=== PATIENT | male | born 1960 | race Caucasian/White ===

== ENCOUNTER → 2021-03-25 09:03 | Outpatient (CLI) | payer OTHER, SELFPAY ==
[2021-03-25 10:32] LABS: Add Manual Diff / Slide Review NO; Basophils Absolute Auto 0 /uL (0-100); Basophils Percent Auto 0.8 % (0-2); Eosinophils Absolute Auto 600 /uL (0-450); Eosinophils Percent Auto 9.9 % (2-4); Hemoglobin 13.9 g/dL (13.5-17.5); Lymphocytes Absolute Auto 1200 /uL (1100-4500); Lymphocytes Percent Auto 21.4 % (25-40); Mean Corpuscular Hemoglobin 32.5 PG (26-34); Mean Corpuscular Volume 95.7 fL (80-100); Monocytes Absolute Auto 400 /uL (0-900); Monocytes Percent Auto 7.8 % (3-14); Neutrophils Absolute Auto 3400 /uL (1500-7000); Neutrophils Percent Auto 60.1 % (50-75); Platelet Count 258 X10^3/uL (150-400); Red Blood Cell Count 4.28 X10^6/uL (4.5-5.9); Red Cell Distribution Width 12.6 % (11.6-14.8); White Blood Cell Count 5.7 X10^3/uL (4.5-11.0)
[2021-03-25 10:44] LABS: Hemoglobin A1C% w Est Avg Glu 4.5 % (4.0-6.0)
[2021-03-25 10:45] LABS: BUN Creatinine Ratio 12.7 (6-22); Blood Urea Nitrogen 13 mg/dL (9-20); Calcium 9.4 mg/dL (8.4-10.2); Carbon Dioxide 32 mmol/L (22-32); Chloride 96 mmol/L (98-107); Estimated Glomerular Filt Rate > 60.0 mL/min (>60); Glucose 88 mg/dL (80-110); HEMOLYSIS < 15 (0-50); Potassium 3.9 mmol/L (3.4-5.1); Sodium 133 mmol/L (137-145)
== END ==
PROVIDERS: Family Provider Family Medicine; PCP Family Medicine; Referring Provider Orthopaedic Surgery; Visit Provider Orthopaedic Surgery
DX: Z01.818 Encounter for other preprocedural examination (principal); Z01.812 Encounter for preprocedural laboratory examination; M25.562 Pain in left knee; R73.9 Hyperglycemia, unspecified
CPT/HCPCS: 36415; 80048; 83036; 85025; 93005; 93010

== ENCOUNTER → 2021-04-09 11:23 | Outpatient (CLI) | payer OTHER, SELFPAY ==
[2021-04-09 14:08] LABS: COVID19 -Nasal RAPID Negative (Negative)
== END ==
PROVIDERS: Family Provider Family Medicine; PCP Family Medicine; Visit Provider Nurse Practitioner
DX: Z20.822 Contact with and (suspected) exposure to COVID-19 (principal)
CPT/HCPCS: 87635

== ENCOUNTER 2021-04-12 06:00 | Day surgery (SDC) | payer OTHER, SELFPAY ==
[2021-04-06 11:40] VITALS: BMI 26.3
[2021-04-12] VITALS (18 sets, daily range): BP systolic 111–135; BP diastolic 60–89; PULSE 49–83; RESP 10–18; TEMP 35.9–37; O2SAT 92–100; BMI 26.9; BMI 27.0
[2021-04-12] MEDS: LACTATED RINGERS 1,000 ML 42 ML IV (06:57)
[2021-04-12] MEDS: ACETAMINOPHEN 325 MG TABLET 975 MG PO (07:16)
--- NOTE | 2021-04-12 07:24 | PM.PREOP ---
Pre-operative Note COVID-19 COVID-19 status: Negative Result date/Date tested (Pos, Neg/Pending): 04/09/21 Interval Note History & Physical reviewed/Exam performed by Physician: Yes Changes to H&P: No
--- NOTE | 2021-04-12 07:25 | DI.RAD.S_ITS ---
PROCEDURE: XR KNEE LT 1TO2V INDICATIONS: Post op total knee TECHNIQUE: 2 view(s) of the knee acquired. COMPARISON: [facility], CR, XR KNEE ARTHRITIC SERIES BI, 03/11/2021, 10:31. FINDINGS: Bones: Patient is status post knee joint arthroplasty. Hardware components are in expected positions. Visualized bony structures are intact. Soft tissues: Overlying postoperative changes are noted. IMPRESSION: Expected postoperative appearance of the left knee arthroplasty. Dictated by: Ebenezer Villa M.D. on 04/12/2021 at 9:35 Approved by: Ebenezer Villa M.D. on 04/12/2021 at 9:36
--- NOTE | 2021-04-12 07:27 | PM.OP.1 ---
Operative Date/Time/Diagnoses Date of procedure: 04/12/21 Time of procedure: 09:52 Pre-op diagnosis: Left knee osteoarthritis Post-op diagnosis: same Procedure & Clinicians Procedure: Left total knee replacement Same procedure as scheduled: Yes Indications: The patient has had progressively worsening left knee pain with radiographic changes consistent with arthritis. Non-operative management has failed and the patient has requested total knee replacement. The risks, benefits and alternatives to surgery were discussed with the patient prior to proceeding. Risks discussed included, but were not limited to, failure to relieve pain, stiffness, infection, nerve damage, deep venous thrombosis, pulmonary embolism, stroke, coma, heart attack, permanent paralysis and , as well as the potential need for eventual revision of the prosthetic. Surgeon: Greg Huang Electroencephalogram Technologist: Wei Garcia Click Yes if Unassisted: No Anesthesia Type: General, Spinal and Local Operative Notes Findings: Severe medial and moderately severe patellofemoral osteoarthritis. Relative preservation of the lateral compartment. Closure Type: primary Specimen(s): none sent Prosthetic devices, grafts, tissues, transplants, or devices: Implants used in this procedure were manufactured by the [employer] and [employer] and included the BCS II Journey total knee replacement with a size 8 Oxinium femur, a size 7 non porous tibial base plate, a 9 mm cross-linked polyethylene insert and a 38 mm oval Linn II patella. Applied: implant(s) Estimated Blood Loss (mL): 100 Blood products transfused: none Tourniquet time (min): 51 Procedure in detail: The patient was seen in the pre-operative area, where the left knee was identified as the operative site and this was marked with my initials. The patient received pre-operative antibiotics, and was taken to the operating room and placed on the operative table in the supine position. After satisfactory anesthesia, a time lock expert out was performed. The left leg was encircled with a tourniquet about the proximal thigh, and the leg was prepared from the toes to the tourniquet with ChloroPrep in the usual fashion and draped through sterile drapes. The leg was elevated and exsanguinated with Eschmark bandage and the tourniquet inflated to 250 mmHg pressure. The knee was approached through an approximately 16 cm incision centered over the patella and carried into the knee through a medial parapatellar arthrotomy. The anterior osteophytes and soft tissues were removed. The rotational landmarks of [place]'s line and the transepicondylar axis were marked on the femur with electrocautery, and intramedullary guide holes for the femur and tibia were created. The distal femoral cut was made in 6 degrees of valgus using the intramedullary guide at the primary cut setting. The proximal tibial cut was then made using the intramedullary guide, taking 9 mm of bone off the less involved side. The extension gap was checked and the rotation of the femoral component confirmed with the gap balancing blocks. The anterior, posterior and chamfer cuts were then made. The posterior osteophytes and soft tissues were then removed. The posterior capsule was injected with part of a mixture of 60 ml 0.25% Marcaine mixed with 20 ml Exparel and 4 mg of morphine for post-operative pain control. The remainder of this mixture was injected into the capsule and subcutaneous tissues during cement curing. The tibia was prepared with the rotation set by an extra medullary guide. Trial tibial and femoral components were then placed and the intercondylar notch cut through the femoral trial. Range of motion was 0-145 degrees, with good stability throughout the range. The patella was then cut to accommodate the patellar prosthetic. There was no need for a lateral release. The trials were then removed, and the femoral hole plugged with a bone plug. The bone was prepared with pulsatile lavage, and dried with a sponge. Cement was applied and the final prosthetics placed. Excess cement was removed during and after cement curing. After confirming there was no extruded cement posteriorly, the final tibial insert was placed. The knee was copiously irrigated and the tourniquet deflated. Hemostasis was obtained. The capsule was closed with interrupted # 2 polyester sutures. The subcutaneous layer was closed with 3-0 Vicryl, and the skin with a running 3-0 V-Lock suture and Dermabond. An Aquacel Ag dressing was applied and the patient was taken to recovery having tolerated the procedure well. Complications: none Post-operative Condition: stable Disposition: PACU Plan for aftercare: The patient will be maintained on a standard total knee replacement protocol with weight bearing as tolerated. The patient will receive aspirin and sequential compression devices for DVT prophylaxis. The patient will be discharged home when safe for the home environment.
[2021-04-12] MEDS: TRANEXAMIC ACID 1,000 MG VIAL 2000 MG INJ ×2 (08:09→09:17)
[2021-04-12] MEDS: CEFAZOLIN 1 GM VIAL 2 GM IV (08:13)
--- NOTE | 2021-04-12 08:30 | SUR.OPER ---
Supine on padded OR bed. Pillow under head, arms secured on padded armboards <90 degree abduction. Safety belt across torso. Non-operative leg secured with tape over blanket over lower leg. Operative leg secured in DeMayo/Stewart/Nathe positioner. Foam padded brace at thigh of operative leg.
[2021-04-12] MEDS: BUPIVACAINE LIPOSOME 266 MG/20 ML VIAL INJ (08:37)
[2021-04-12] MEDS: MORPHINE 4 MG/ML INJ SUBCUT (08:39)
[2021-04-12] MEDS: BUPIVACAINE 0.25% (PF) VIAL 30 ML INJ (08:39)
[2021-04-12] MEDS: EPINEPHrine 1 MG/ML SUBCUT (08:40)
--- NOTE | 2021-04-12 10:03 | SUR.PHASEI ---
Received to PACU after general/spinal anesthesia. Airway patent, self maintained. Report received from Dr Saavedra and MARTI Flores. Medicated for pain by Dr Saavedra as noted.
[2021-04-12] MEDS: HYDROMORPHONE 2 MG INJ IV ×4 (10:09→10:30)
[2021-04-12] MEDS: LACTATED RINGERS 1,000 ML 120 ML IV (10:15)
[2021-04-12] MEDS: PREGABALIN 75 MG CAPSULE PO (10:15)
[2021-04-12] MEDS: hydrOXYzine pamoate 25 MG CAPSULE PO ×2 (10:15→12:47)
[2021-04-12] MEDS: OXYCODONE IR 5 MG TABLET PO ×2 (10:15→11:03)
[2021-04-12] MEDS: CELECOXIB 200 MG CAPSULE PO (10:16)
[2021-04-12] MEDS: fentaNYL 100 MCG/2 ML INJ IV ×3 (10:35→10:51)
--- NOTE | 2021-04-12 11:09 | SUR.PHASEI ---
Pt with tolerance to pain meds. Medicated as noted with improvement from pain score of 9 to 6. Pt states pain much better, but not where he would like it to be just yet. Pt dozing on and off with subsequent decrease in sats to 90-91%. Up to 4-95% when awake. Will transfer to floor. Report called to MARTI Chan. Transferred to room 216 with belongings by MARTI Salcedo and MARTI Tubbs.
[2021-04-12] MEDS: HYDROMORPHONE 0.5 MG INJ 0.2 MG IV ×2 (11:47→14:07)
[2021-04-12] MEDS: OXYCODONE IR 10 MG TABLET PO ×3 (11:48→20:46)
[2021-04-12] MEDS: LACTATED RINGERS 1,000 ML 100 ML IV ×2 (11:49→22:07)
[2021-04-12] MEDS: HYDROMORPHONE 2 MG TABLET PO (12:44)
[2021-04-12] MEDS: IBUPROFEN 400 MG TABLET PO ×3 (12:47→20:43)
--- NOTE | 2021-04-12 14:06 | PT.IIE ---
Current Diagnoses Unilateral primary osteoarthritis, left knee (04/12/21) Surgery Performed Operation Date: 04/12/21 07:45 Actual Procedures p Total Knee Arthroplasty(Left) - Greg Huang MD Medical History (Last Updated 04/06/21 @ 12:24 by Wandy Humphries RN) Anxiety Chronic neck and back pain COPD (chronic obstructive pulmonary disease) Hearing impaired HLD (hyperlipidemia) HTN (hypertension) Physical Therapy Inpatient Evaluation/Re-Eval M1 PT/OT-IP Prior Functional Status Start: 04/12/21 12:17 Freq: NEEDED Status: Active Protocol: Document 04/12/21 14:06 AW (Rec: 04/12/21 14:36 AW [id number]) Medical Review Prior Functional Status Medical History Reviewed Yes Communication WNL. Pt is an effective verbal communicator. Mobility and Gait Pt reports independent household mobility. He is able to walk short distances outside the home with or without a SPC. He reports feeling uncoordinated and out of sorts when initiating gait and admits to 2 falls in the past 3 months. Activities of Daily Living and IADL's Independent with ADL's. Pt is an active water truck driver. Prior Functional Level (Other details) Per H&P, pt has history of chronic back pain for which he regularly takes hydrocodone. Social History Household Members none Living Arrangements House Number of Floors (Floors) One Floor Number of Stairs To Enter/Railing? 3 LEN with left rail ascending Home Environment High Toilet,Tub/Shower Home Equipment Front Wheel Walker,Straight Cane Additional Social History Comment Pt states he plans to discharge to his friend's house where he can stay until 04/20. Details in this report refer to that home setting. Pt 's daughter will then be able to stay with him at his own house for another week to assist as needed. M2 PT-IP Current Condition Start: 04/12/21 12:17 Freq: NEEDED Status: Active Protocol: Document 04/12/21 14:06 AW (Rec: 04/12/21 14:36 AW [id number]) Physical Therapy Current Condition Current Condition Evaluation Date 04/12/21 Treatment Diagnosis L TKA; chronic pain; difficulty in walking Onset Date 04/12/21 Weight Bearing Status Weight Bearing Status Weight Bear as Tolerated M3 PT-IP Subjective Start: 04/12/21 12:17 Freq: NEEDED Status: Active Protocol: Document 04/12/21 14:06 AW (Rec: 04/12/21 14:36 AW [id number]) Subjective Physical Therapy Visit Type Type Initial Evaluation Visit Start Time 13:35 Visit Stop Time 14:06 Total Visit Minutes 31 Number of STEEL WELDER Visits 0 Physical Therapy Visit Comments Patient Comments Pt is willing to participate with PT. Patient Goals Return home with support from friends and family. Long-term, pt hopes to return to [facility]. Therapy Pain Assessment Pain When Pain Assessed During Mobility Pain Present Pain Present Pain Reported Location left knee Intensity 8 Scale Used 5/10 at rest; 8/10 with mobility Pain Behaviors Facial Grimacing,Guarding, Wincing Pain Management Techniques Apply Cold,Modification of Treatment,Timing of Activity with Medications M4 PT-IP Mobility and Gait Start: 04/12/21 12:17 Freq: NEEDED Status: Active Protocol: Document 04/12/21 14:06 AW (Rec: 04/12/21 14:36 AW [id number]) PT-Bed Mobility Assessment Supine to Sit Supine to Sit Minimal Assistance,1 Person Assistance Sit to Supine Sit to Supine Minimal Assistance,1 Person Assistance Scooting Scooting to Edge of Bed Standby Assistance PT-Transfer Assessment Sit to and From Stand Sit to and from Stand Minimal Assistance,Moderate Assistance,1 Person Assistance ,Use of Upper Extremities Equipment Transfer Assistive Device Gait Belt,Front Wheeled Walker Orthotic/Prosthetic Devices or Brace: No Transfers Transfer Destination Bed,Chair Transfer Technique Stand Step Pivot Transfer Ability Level of Assist Minimal Assistance,Moderate Assistance,1 Person Assistance Comments Mobility Comments Pt was lying in bed as PT arrived. Supine BP was 108/72 HR 63. Pt completed supine to sit toward left side of bed with min assist to support his operative leg. Pt was able to sit EOB with UE support. With bed raised 1-2 from lowest position (to simulate home environment), pt stood from the bed min A x 1 and used FWW to steady himself. He was able to shift weight laterally with significant use of BUE for offloading LLE. He agreed to attempt transfer to the chair, requiring min A x 1 and cues for quads activation on the left. PT provided max cues and min assist for sequencing stand>sit. Pt was shaking and his teeth were chattering. He complained of cold but denied lightheadedness. BP was 135/ 89 HR 72. Pt requested return to bed, requiring mod A x 1 to stand from the chair and for step transfer to bed using FWW . Min A was provided to elevate the LLE to the bed and pt was able to reposition himself with the exception of needing assist to adduct LLE. Pt was left with call light and tray table in reach, bed alarm on for safety. Gait Assessment Gait Gait Assistance Required: Minimum Assistance,Moderate Assistance,1 Person Assist Distance (Feet) 3 Able to Maintain Weight Bearing Status Yes During Gait Assistive Devices Assistive Device Gait Belt,Front Wheeled Walker Orthotic/Prosthetic Devices or Brace: No Gait Deviations General Gait Pattern Antalgic,Decreased Stride Length,Decreased Feet Clearance,Flexed Trunk,Step-to Gait Factors Limiting Gait Function Factors Limiting Gait Function Decreased Sensation,Decreased Strength,Limited Range of Motion,Pain,Poor Balance Comments Gait Comments Steps taken during transfers only. See mobility comments for details. Stair Climbing Assessment Comments Stair Climbing Comments Not assessed. PT-Balance Assessment Sitting Balance and Reactions Static Sitting Balance Ability Good Dynamic Sitting Balance Ability Good Standing Balance and Reactions Static Standing Balance Ability Fair Dynamic Standing Balance Ability Fair Device Used FWW M5 PT-IP Objective Assessments Start: 04/12/21 12:17 Freq: NEEDED Status: Active Protocol: Document 04/12/21 14:06 AW (Rec: 04/12/21 14:36 AW [id number]) Orientation Orientation/Cognition Level of Alertness Alert Orientation Name,Day of Week,Place, Situation Language Function Ability No Deficits Noted Safety Awareness Understands Safety Issues Memory Description No Deficits Noted Gross Range of Motion Lower Extremity ROM Assessment Left Impaired Strength Lower Extremity Strength Assessment Left Impaired Hip 4/5 Knee 3-/5 Ankle 4+/5 Sensation Assessment Sensation Gross Sensation Left LE Impaired Light Touch Impaired Comments Sensation Comments Pt reports numbness in posterior thigh on evaluation. M6 PT-IP Treatment Start: 04/12/21 12:17 Freq: NEEDED Status: Active Protocol: Document 04/12/21 14:06 AW (Rec: 04/12/21 14:36 AW [id number]) Physical Therapy Treatment Exercises Exercises Ankle Pumps,Quad Sets,Heel Slides Knee ROM Measurement 5-45 PROM Education Education Provided Weight Bearing Status,Post-Op Packet,Safety Other Treatments Other Treatment Performed Provided education on PT plan of care, weightbearing status, importance of early post-op mobility, and safe use of FWW. M7 PT-IP Assessment and Plan Start: 04/12/21 12:17 Freq: NEEDED Status: Active Protocol: Document 04/12/21 14:06 AW (Rec: 04/12/21 14:36 AW [id number]) PT Summary Assessment and Plan Potential Rehabilitation Potential Good Status of Condition at Evaluation Evolving Summary Impairments Pain,ROM,Strength,Balance, Sensation,Bed Mobility, Transfers,Gait Assessment Summary Xander is a 60 yo man seen for PT evaluation on POD0 following L TKA. He reports independent household mobility and modified independent outside the house for short distances with or without a SPC. On evaluation, pt required min to mod assist with bed mobility, sit to stand, and transfers with primary limitation being pain. Pt is likely to progress during his hospital stay and be safe to discharge home with assist and outpatient PT. Will continue to assess. Goals Bed Mobility Goal Standby Assistance Transfer Goal Standby Assistance,Front Wheeled Walker Gait Goal Standby Assistance,Front Wheel Walker Gait Distance 150 Other Goals - up/down three steps with L rail ascending SBA Days to Meet Goals 3 Frequency of Treatment Frequency Of Treatment Twice a Day Treatment Plan Physical Therapy Treatment Plan Bed Mobility Training,Transfer Training,Gait Training, Therapeutic Exercise,Balance Retraining,Post Op Education, Discharge Planning,Hot or Cold Pack Other Recommendations and Next Treatment transfers, gait with FWW Focus Precautions Other Precautions WBAT LLE Recommendations To Nursing Amount of Assist Needed 1 Person Assist Discharge Recommendations PT Discharge Recommendations Home with Assistance, Outpatient PT Transportation Needs at Discharge Private Vehicle
[2021-04-12] MEDS: methocarbamoL 500 MG TABLET 1000 MG PO ×2 (14:07→20:44)
[2021-04-12] MEDS: ACETAMINOPHEN 325 MG TABLET 650 MG PO ×2 (14:08→20:44)
[2021-04-12] MEDS: TRAZODONE 100 MG TABLET PO ×2 (14:08→20:45)
--- NOTE | 2021-04-12 15:36 | CM.DANOTE ---
Patient is a 60 yo male who was admitted on 04/12/21 for LTKA. Pt has REG Gild for insurance and his PCP is Dr. Alicia Arredondo. EMR was reviewed. Per Ortho MD, pt tolerated procedure this morning well. Per PT, pt was able to participate in ambulation some this afternoon and pending progress and stairs likely home with outpt vs HH. SW met bedside with pt and explained role and he confirms that he lives at home alone in [place] and works at [employer] at baseline and independent but his activity tolerance has decreased due to pain the past year. Pt states he is really looking forward to getting back into hiking and [place]. Pt denies any hx of HH or SNF and is established at outpt PT already. Pt confirms that his friend is planning to provide transport home at d/c and pt will stay with his friend for a couple days and friend has the house set up for him and has been through his own knee surgery himself so helped make sure pt's bed is the right height as well as a walker already. Pt also states his Dtr will arrive from out of town in a couple days and plans to stay at pt's house for a week for assist and pt does not anticipate any needs at d/c and plans to return to outpt PT. Pt denies any DPOA but states he is working on pwk. Plan: SW to follow closely for further PT tomorrow and pt has been on pain meds for years and may have pain mngmt issues to confirm safe plan of home with friend to assist and outpt PT vs HH. KALEB Cota Discharge Planning/Care Management CM Discharge Assessment Start: 04/12/21 15:34 Freq: Status: Active Protocol: Document 04/12/21 15:34 BF (Rec: 04/12/21 15:36 BF [id number]) Discharge Planning Assessment Assigned Human Resource Intern KALEB Ohara DPOA/Assigned Designee Name none Advance Directives? No: Working on Advance Directives on File No History Provided By Patient,Medical Record Has Patient been admitted in last 30 No days? Prior Living Arrangements House Household Members none Type of transporation used prior to Drives own vehicle admit Independent with ADL's Yes Is patient alert and oriented? Yes Caregiver for Another No Patient/Family Preference OP PT Therapy Barriers to Discharge No Discharge Plan Home Community Services Physical Therapy Transportation Arrangement Friend plans to transport pt to his house for assist at d/c Referrals Initiated None needed Additional Comment Pending further PT Whiteboard Updated in Patient Room with Yes name and ext. # of Human Resource Intern Review Status In Process Please Provide Date Initial DC 04/12/21 Assessment Was Performed Next Review Type Continued Stay Review Pre-Anesthesia Assessment Start: 04/06/21 11:40 Freq: Status: Active Protocol: Document 04/06/21 11:40 CAB (Rec: 04/06/21 12:41 CAB [id number]) Pre-Anesthesia Assessment Patient Information Reviewed Via Phone Assessment Assessment Completed With Patient H&P Completed Within 30 Days No: Not identified at time of assess Diagnostic Results BMP/CMP,CBC,EKG Comment Labs/EKG @ [facility] 03/25/21, COVID screen @ 04/09/21 Primary Care Provider Alicia Arredondo Seen Specialist in Last 12 Months Yes Specialist Seen Orthopedist Primary Language [place] Signal Officer Required No Height 187.96 cm Weight 92.986 kg Body Mass Index (BMI) 26.3 Hearing Ability Hard of Hearing Visual Impairment No Limitations Visual Assist None Dentition Type Teeth, Natural Present,Teeth, Missing Barriers to Learning Auditory,Visual Hx Anesthesia Reactions No Hx Family Anesthesia Reaction No Hx Malignant Hyperthermia No Hx Blood Transfusions No Anesthesia Review Requested No alcohol intake current alcohol intake frequency 0-2 drinks per day Smoking Status Former smoker how long ago did patient quit smoking Quit 1976 Substance Use Type does not use Pain Present Pain Reported Musculoskeletal Symptoms Abnormal Gait,Back Pain, Difficulty Walking,Joint Pain, Neck Pain,Radiating Pain into Limb,Tingling History of Falling (Recent or History of No ) Patient is completely paralyzed or No completely immobile Mental Status Oriented to own ability Is patient on oxygen? No Does patient have RIZVI/SOB Yes: r/t COPD Hx Sleep Apnea No Currently Taking a Beta Loy Yes: Metoprolol Can You Climb a Flight of Stairs Without No SOB Hx Chest Pain Yes: 2015-noncardiac, anxiety Hx SOB Yes: r/t COPD Hx Syncope or Dizziness No Anti-Coagulant Therapy No Has a Braiding Operator No Cardiac Testing No Hx Pacemaker/ICD No Pacemaker Rep Required? No Cardiac Clearance Received Not Applicable Diet Type At Home Regular dysphagia No Gastrointestinal Symptoms Diarrhea Bladder Pattern Frequency Urinary Catheter Present No Hx Urinary Self Catheterization No Diabetes No Hx Drug Resistant Organism No Presence of External or Internal Medical No Devices Have you had any close contact with No someone diagnosed with COVID-19? Marital Status Lives With none Prior Living Arrangements House Number of Floors (Floors) One Floor Support System Child/Children,Friend(s) Does the Patient Have Assistance After Yes: Pt will initially stay w/ Surgery friend then transfer home w/ daughter Patient Discharge Plan Description Return Home,Other Comment Pt advised overnight length of stay per surgeon Feels Safe in Current Environment Yes Been Physically Hurt or Threatened By a No Person in Current Environment Do you have thoughts of harming yourself None or others? Are you currently considering suicide? No Do you have a plan to hurt yourself or No Plan others? Do You Have Any Spiritual Beliefs That No May Affect Your HC Choices? Do You Have Any Cultural Practices That No May Affect Your HC Choices? Comment [place] Who Can We Speak to About Patient's Care Family, friends Identifying Code for Release of Patient Declines to issue Information Health Care Proxy/Next of Kin Xander Osborne (friend) Health Care Proxy Emergency Contact Name Xander Osborne (friend) Emergency Contact Advance Directives? No: Working on Power of Shiatsu Therapist No PAC Instructions Durable medical equipment, Medications to take/avoid, Nasal antibiotic,No ETOH/ petroleum product on skin DOS, NPO,Post-op transportation,Pre -surgical wash,Sturdy shoes/ comfortable clothes,Do not bring valuables and remove jewelry
--- NOTE | 2021-04-12 15:44 | PC.NURSE ---
Pt up to acute care from PACU at around 1110 am. Pt awake, alert and oriented x 4 and c/o pain 6/10. Pt takes narcotics routinely for chronic back pain. Medicated throughout shift with pain meds. Pain meds effective. Rates pain 4-5 lowest and he was ok with this level. Up with PT, using walker. Eating and drinking ok without nausea. IV fluids running into right wrist peripheral IV. Has not voided yet post surgery. Report given to Nuvia KIDD regarding this. Bedside shift report given with both RN's inspecting left knee dressing. Pt still experiencing numbness bilat back of legs from just above knee to buttocks.
[2021-04-12] MEDS: ALBUTEROL 2.5 MG/3 ML NEB (ADULT) INH ×2 (15:45→20:23)
[2021-04-12] MEDS: HYDROMORPHONE 0.5 MG INJ 0.4 MG IV (17:03)
[2021-04-12] MEDS: HYDROMORPHONE 4 MG TABLET PO (19:31)
[2021-04-12] MEDS: BUDESONIDE 0.5 MG/2 ML NEB INH (20:23)
[2021-04-12] MEDS: ALPRAZolam 0.5 MG TABLET 0.25 MG PO (20:43)
[2021-04-12] MEDS: ASPIRIN EC 81 MG TABLET PO (20:44)
[2021-04-12] MEDS: DOCUSATE 100 MG CAPSULE PO (20:45)
[2021-04-12] MEDS: METOPROLOL IR 50 MG TABLET 100 MG PO (20:45)
[2021-04-12] MEDS: diphenhydrAMINE 25 MG TABLET PO (20:46)
[2021-04-13] VITALS: BP 115/65; PULSE 60; RESP 18; TEMP 36.6; O2SAT 95
[2021-04-13] MEDS: IBUPROFEN 400 MG TABLET PO ×3 (01:16→08:37)
--- NOTE | 2021-04-13 01:36 | PC.NURSE ---
Patient is alert and oriented. Breath sounds CTA with RA sat of 95%. HRR. Denies nausea. BT hypoactive and denies flatus as yet following surgery. Has voided postop and denies dysuria, frequency or urgency. Able to move self in bed. Gait not assessed as not out of bed this shift. Aquacel dressing to left knee covered with sanchez wrap is CDI. States pain is currently only 3/10; medicated with scheduled Ibuprofen. Good pedal pulse and cap refill but unable to lift left leg off bed. Wearing bilateral calf SCD's. Reports having had recent fall and risk assessment is high so bed alarm is activated.
[2021-04-13] MEDS: HYDROMORPHONE 4 MG TABLET PO ×3 (01:54→09:25)
[2021-04-13 04:50] VITALS: BP 119/69; PULSE 58; RESP 18; TEMP 36.7; O2SAT 95
[2021-04-13 05:37] LABS: Hematocrit 33.6 % (41-53); Hemoglobin 11.4 g/dL (13.5-17.5)
[2021-04-13 08:00] VITALS: BP 131/88; PULSE 66; RESP 16; TEMP 36.8; O2SAT 97
[2021-04-13] MEDS: FLUoxetine 20 MG CAPSULE 80 MG PO (08:35)
[2021-04-13] MEDS: AMLODIPINE 5 MG TABLET 10 MG PO (08:36)
[2021-04-13] MEDS: ASPIRIN EC 81 MG TABLET PO (08:36)
[2021-04-13] MEDS: ALPRAZolam 0.5 MG TABLET 0.25 MG PO (08:36)
[2021-04-13] MEDS: TRAZODONE 100 MG TABLET PO (08:37)
[2021-04-13] MEDS: DOCUSATE 100 MG CAPSULE PO (08:37)
[2021-04-13] MEDS: ACETAMINOPHEN 325 MG TABLET 650 MG PO (08:37)
[2021-04-13] MEDS: hydroCHLOROthiazide 25 MG TABLET PO (08:37)
[2021-04-13] MEDS: METOPROLOL IR 50 MG TABLET 100 MG PO (08:37)
[2021-04-13] MEDS: ATORVASTATIN 20 MG TABLET PO (08:37)
[2021-04-13] MEDS: methocarbamoL 500 MG TABLET 1000 MG PO (08:37)
[2021-04-13 08:38] VITALS: BP 138/88
[2021-04-13] MEDS: FLUTICASONE 120 SPRAY/16 GM SPRAY.SUSP NASAL (08:38)
[2021-04-13] MEDS: lisinopriL 20 MG TABLET PO (08:38)
[2021-04-13] MEDS: OXYCODONE IR 10 MG TABLET PO (08:45)
[2021-04-13] MEDS: ALBUTEROL 2.5 MG/3 ML NEB (ADULT) INH (09:03)
[2021-04-13] MEDS: BUDESONIDE 0.5 MG/2 ML NEB INH (09:03)
[2021-04-13 09:04] VITALS: O2SAT 97
--- NOTE | 2021-04-13 09:25 | PM.DS.1 ---
History of Present Illness History of Present Illness Date Patient Seen: 04/13/21 Time Patient Seen: 09:25 Chief complaint: OPB Narrative: The history and physical is contained in the chart in a previously completed note. Please refer to that note for this information. Discharge Providers Provider Date of admission: April 12, 2021 Discharge Date: 04/13/21 Primary care physician: Alicia Arredondo MD Consults: 04/12/21 07:24 Consult to Anesthesiology Routine Comment: Consulting Provider: Anesthesiologist Reason for consultation: Regional block for post operative pain control 04/12/21 11:08 Consult to Discharge Planning Routine Comment: Consult to Physical Therapy Evaluate & Treat Comment: Physician Instructions: postop TKA protocol Consult to Respiratory Therapy Evaluate & Treat Comment: Physician Instructions: Evaluate and treat Discharge provider: Greg Huang MD Summary Hospital Course Discharge Diagnosis: 1. Left knee osteoarthritis 2. Post hemorrhagic anemia 3. History of long-term use of narcotics with dependency. Hospital Course: Patient was admitted to the hospital and taken directly to the operating room on April 12, 2021. He underwent a left total knee replacement without complications. Initially his intention had been to be discharged on the day of surgery however it was difficult to control his pain due to a significant tolerance to narcotic pain relievers. Eventually we came upon a regimen which gave him relief by postoperative day 1. On the morning of postoperative day 1 he is comfortable, medically stable and appears to be ready for discharge. Status at Discharge Cognitive/behavioral status at discharge: oriented Functional status at discharge: uses cane/walker Overall status at discharge: patient is progressing back to baseline Time Spent with Patient Time spent: Less than 30 minutes Exam Vital Signs (past 8 hours): - 04/13/21 04:50 04/13/21 08:00 04/13/21 08:38 Temperature 98.0 F 98.2 F Pulse Rate 58 L 66 Respiratory Rate 18 16 Blood Pressure 119/69 131/88 138/88 Pulse Oximetry 95 97 04/13/21 09:04 Temperature Pulse Rate Respiratory Rate Blood Pressure Pulse Oximetry 97 Oxygen Delivery Method Room Air Oxygen Flow Rate 0 Narrative Exam Narrative: Left knee wound is dressed with no drainage on the bandage. Calf is soft. Light touch and motion are intact in the left lower extremity. Objective Labs Result Diagrams: 04/13/21 05:20 Labs: Laboratory Results - last 24 hr 04/13/21 05:20 Hgb 11.4 L Hct 33.6 L [facility] Medical History (Updated 04/06/21 @ 12:24 by Wandy Humphries RN) Anxiety Chronic neck and back pain COPD (chronic obstructive pulmonary disease) Hearing impaired HLD (hyperlipidemia) HTN (hypertension) Surgical History (Updated 04/06/21 @ 12:22 by Wandy Humphries RN) Hx of arthroscopy of left knee (~1988) Social History household members: none Smoking Status: Former smoker alcohol intake: current Discharge Assessment & Plan Assessment and Plan Assessment: Stable postoperative day 1 status post left total knee replacement for osteoarthritis. Initially he had difficulty with pain control due to a substantial baseline tolerance for narcotics. He is currently comfortable on a mixture of oxycodone and Dilaudid. Plan of Treatment: Discharge today. Follow up at my office in 10-14 days. He has been given prescriptions for oxycodone 10 mg and Dilaudid 4 mg for pain control at home. In addition he has been instructed in the use of Tylenol and ibuprofen for baseline pain relief and the use of hydroxyzine for spasms. He has also been instructed in the use of low-dose aspirin for DVT prophylaxis. Discharge Plan Discharge Plan Patient Disposition: Home Discharge orders & Medications Discharge Orders: Discharge (Order); Ordered 04/13/21 Ordered By: Greg Huang Prescriptions: New acetaminophen 325 mg Tablet 650 mg PO TID 30 Days Qty: 180 RF: 0 aspirin 81 mg Tablet,Delayed Release (Dr/Ec) 81 mg PO BID 42 Days Qty: 84 RF: 0 ibuprofen 400 mg Tablet 400 mg PO Q4HR 30 Days RF: 0 hydromorphone 4 mg Tablet 4 mg PO Q4H PRN (Reason: Pain, Severe (7-10)) Qty: 20 RF: 0 hydroxyzine pamoate 25 mg Capsule 25 mg PO Q6HR PRN (Reason: Nausea) Qty: 40 RF: 0 oxycodone 10 mg Tablet 10 mg PO Q4H PRN (Reason: Pain, Severe (7-10)) Qty: 60 RF: 0 Continued methocarbamol 500 MG tablet 1,000 mg PO TID Qty: 0 RF: 0 trazodone 100 mg Tablet 100 mg PO TID Qty: 0 RF: 0 amlodipine 10 mg Tablet 10 mg PO DAILY Qty: 0 RF: 0 fluoxetine 40 mg Capsule 80 mg PO DAILY Qty: 0 RF: 0 metoprolol tartrate 100 mg Tablet 100 mg PO BID Qty: 0 RF: 0 lisinopril 20 mg Tablet 20 mg PO DAILY Qty: 0 RF: 0 fluticasone propionate 50 mcg/actuation Lindsay,Suspension 2 spray INTRANASAL DAILY Qty: 0 RF: 0 fluticasone propion-salmeterol [Advair Diskus] 250-50 mcg/dose Blister With Device 1 inh INHALATION QD-BID Qty: 0 RF: 0 atorvastatin 20 mg Tablet 20 mg PO DAILY RF: 0 alprazolam 0.5 mg Tablet 0.25 mg PO BID RF: 0 hydrochlorothiazide 25 mg Tablet 25 mg PO DAILY RF: 0 albuterol sulfate 90 mcg/actuation Hfa Aerosol Inhaler 2 puff INHALATION 6XD PRN (Reason: Shortness Of Breath) RF: 0 diphenhydramine HCl 25 mg Tablet 25 mg PO BEDTIME PRN (Reason: Sleep) RF: 0 Discontinued hydrocodone-acetaminophen 10-325 mg Tablet 2 tab PO Q4H PRN (Reason: Pain) Qty: 0 RF: 0 Follow up/Referrals: Greg Huang MD [Physician] - 2 Weeks Alicia Arredondo MD [Primary Care Provider] - Diet/Activity/Treatments Diet: Diet as Tolerated and Regular Activity: You may bear weight as tolerated on your left leg. Cold/Heat Therapy: You may apply ice for 15 minutes every hour as needed to the left knee for pain control. Skin/Wound/Dressing Care Report to your healthcare provider any signs of infection, such as:: chills, fever, night sweats, increased pain, unusual drainage and unusual redness Dressing: You may remove the Shankar wrap 3 days after surgery and shower normally with the deeper dressing in place. Leave the deeper dressing in place until postoperative follow-up in the office. If the central strip of the deeper dressing becomes saturated with either water or blood, please call the office to have it evaluated. Visit Report/Discharge Packet Instructions: DI for Knee Replacement Stand Alone Forms: Surgery Discharge Discharge Data Primary Care Provider: Aliica Arredondo Attending Provider: Greg Huang Quality VTE Deep Vein Thrombosis/Pulmonary Embolism Present on Admission: No
--- NOTE | 2021-04-13 09:40 | PT.IPTN ---
Current Diagnoses Unilateral primary osteoarthritis, left knee (04/12/21) Surgery Performed Operation Date: 04/12/21 07:45 Actual Procedures p Total Knee Arthroplasty(Left) - Greg Huang MD Physical Therapy Treatment Note M2 PT-IP Current Condition Start: 04/12/21 12:17 Freq: NEEDED Status: Discharge Protocol: Document 04/12/21 14:06 AW (Rec: 04/12/21 14:36 AW [id number]) Physical Therapy Current Condition Current Condition Evaluation Date 04/12/21 Treatment Diagnosis L TKA; chronic pain; difficulty in walking Onset Date 04/12/21 Weight Bearing Status Weight Bearing Status Weight Bear as Tolerated M3 PT-IP Subjective Start: 04/12/21 12:17 Freq: NEEDED Status: Discharge Protocol: Document 04/13/21 09:40 AB (Rec: 04/13/21 12:50 AB [id number]) Subjective Physical Therapy Visit Type Type Treatment Note Visit Start Time 09:40 Visit Stop Time 10:16 Total Visit Minutes 36 Number of CREEL HAND Visits 0 Physical Therapy Visit Comments Patient Comments agreeable to do PT Therapy Pain Assessment Pain When Pain Assessed At Rest Pain Present Pain Present Pain Reported Location left knee Intensity 6 Scale Used Numeric (0 - 10) M4 PT-IP Mobility and Gait Start: 04/12/21 12:17 Freq: NEEDED Status: Discharge Protocol: Document 04/13/21 09:40 AB (Rec: 04/13/21 12:50 AB [id number]) PT-Bed Mobility Assessment Supine to Sit Supine to Sit Standby Assistance Sit to Supine Sit to Supine Standby Assistance PT-Transfer Assessment Sit to and From Stand Sit to and from Stand Standby Assistance Equipment Transfer Assistive Device Gait Belt,Front Wheeled Walker Orthotic/Prosthetic Devices or Brace: No Transfers Transfer Destination Chair Transfer Technique ambulated Transfer Ability Level of Assist Standby Assistance,1 Person Assistance,Use of Upper Extremities Comments Mobility Comments bed mobility training x 2 sets : completed supine <>sit SBA. completed ambulation using FWW ~ 30 ft CGA in first few feet but able to ambulate SBA afterwards. initial cues for L quads activation. pt completed ambulation in the hallway 125 ft using FWW SBA. completed up/down steps using L rail ascending SBA to CGA. ambulated back to the room SBA using FWW. agreed to sit up on chair. call light and table placed within reach. Gait Assessment Gait Gait Assistance Required: Standby Assistance,Contact Guard Assist,1 Person Assist Distance (Feet) 125 Able to Maintain Weight Bearing Status Yes During Gait Assistive Devices Assistive Device Gait Belt,Front Wheeled Walker Orthotic/Prosthetic Devices or Brace: No Gait Deviations General Gait Pattern Antalgic,Decreased Stride Length,Decreased Feet Clearance Factors Limiting Gait Function Factors Limiting Gait Function Decreased Activity Tolerance, Decreased Strength,Limited Range of Motion,Pain,Poor Balance,Poor Safety Awareness Stair Climbing Assessment Evaluation Level of Assist On Stairs Standby Assistance Devices Stair Climbing Assistive Devices Left Railing Technique/Endurance Stair Climbing Direction Ascend and Descend Stair Climbing Technique Step to Step Number of Steps Climbed 3 Stair Climbing Set # Repetitions (reps) 2 M5 PT-IP Objective Assessments Start: 04/12/21 12:17 Freq: NEEDED Status: Discharge Protocol: Document 04/12/21 14:06 AW (Rec: 04/12/21 14:36 AW [id number]) Orientation Orientation/Cognition Level of Alertness Alert Orientation Name,Day of Week,Place, Situation Language Function Ability No Deficits Noted Safety Awareness Understands Safety Issues Memory Description No Deficits Noted Gross Range of Motion Lower Extremity ROM Assessment Left Impaired Strength Lower Extremity Strength Assessment Left Impaired Hip 4/5 Knee 3-/5 Ankle 4+/5 Sensation Assessment Sensation Gross Sensation Left LE Impaired Light Touch Impaired Comments Sensation Comments Pt reports numbness in posterior thigh on evaluation. M6 PT-IP Treatment Start: 04/12/21 12:17 Freq: NEEDED Status: Discharge Protocol: Document 04/13/21 09:40 AB (Rec: 04/13/21 12:50 AB [id number]) Physical Therapy Treatment Exercises Exercises Heel Slides Education Education Provided Weight Bearing Status,Safety M7 PT-IP Assessment and Plan Start: 04/12/21 12:17 Freq: NEEDED Status: Discharge Protocol: Document 04/13/21 09:40 AB (Rec: 04/13/21 12:50 AB [id number]) PT Summary Assessment and Plan Potential Rehabilitation Potential Good Summary Impairments Pain,ROM,Strength,Balance, Coordination,Sensation,Tone, Cognition,Bed Mobility, Transfers,Gait,Activity Tolerance Progress Towards Goals Slow Progress due to Pain Assessment Summary pt requiring SBA to CGA with mobility using FWW. pt plans to go home with his friend to assist him and then her daughter will come in to assist him afterwards. pt may go home when medically stable . Goals Bed Mobility Goal Standby Assistance Transfer Goal Standby Assistance,Front Wheeled Walker Gait Goal Standby Assistance,Front Wheel Walker Gait Distance 150 Other Goals - up/down three steps with L rail ascending SBA Days to Meet Goals 3 Frequency of Treatment Frequency Of Treatment Twice a Day Treatment Plan Physical Therapy Treatment Plan Bed Mobility Training,Transfer Training,Gait Training, Therapeutic Exercise,Balance Retraining,Post Op Education, Discharge Planning,Hot or Cold Pack Precautions Other Precautions WBAT LLE Recommendations To Nursing Amount of Assist Needed 1 Person Assist Discharge Recommendations PT Discharge Recommendations Home with Assistance, Outpatient PT Transportation Needs at Discharge Private Vehicle
--- NOTE | 2021-04-13 10:58 | PC.NURSE ---
Addendum entered by Linda Monahan R.N. 04/13/21 11:08: Talked to patient regarding increased risk of constipation with narcotic use. Talked to him about use of over the counter meds such as Colace/Senna and Miralax. Pt states he will get these if constipation becomes an issue. Of note: pt has history of chronic pain and has been on meds for this for many years. He states constipation has never been an issue while on them but he will be mindful to start taking stool softeners or Miralax if needed. Original Note: Discharge note: pt up with PT walking with walker, appears to be tolerating well. Pain well controlled with prn medication. IV discontinued. Pt intaking fluids and food without difficulty. Stated no BM yet but I feel the urge may be coming. States passing gas. Reviewed discharge paperwork including medication to stop, medication to continue. Reviewed how to take pain medication. Instructed pt to take Oxycodone for pain and if that not effective, can take Dilaudid as ordered. Scripts were sent to his pharmacy. Printed out patient information on Oxycodone/Hydromorphone. Reviewed safety precautions while on pain meds including no driving. Pt asked about handicap placard. Asked discharge planning regarding this and they stated his Primary Care Dr Arredondo needs to issue this. Instructed pt to call his PCP and he states he will do this. Reviewed activing restrictions and care of post op dressing per Dr Huang instruction. Instructed pt to call and make appt with Dr Huang to be seen in 2 weeks. All belongings and paperwork sent home with pt. Mary JACKSON wheeled pt to friend's car in wheelchair. Pt states his friend has his walker in the car. Left acute care in stable condition.
== END 2021-04-13 11:30 | disposition home or self-care (01) ==
LOC: OR 06:06 → AC 06:12
PROVIDERS: Family Provider Family Medicine; PCP Family Medicine; Referring Provider Family Medicine; Visit Provider Orthopaedic Surgery
PROC: 0SRD0JZ Replacement of Left Knee Joint with Synthetic Substitute, Open Approach (ICD-10-PCS; CPT 27447; principal; 2021-04-12 07:45)
DX: M17.12 Unilateral primary osteoarthritis, left knee (principal); J44.9 Chronic obstructive pulmonary disease, unspecified; I10 Essential (primary) hypertension; E78.5 Hyperlipidemia, unspecified; F41.9 Anxiety disorder, unspecified; M54.9 Dorsalgia, unspecified; G89.29 Other chronic pain
CPT/HCPCS: 27447; 36415; 73560; 85014; 85018; 94640; 94760; 97116; 97162; 97530; C1776; C9290; J0171; J0690; J1100; J1170; J2250; J2270; J2405; J2704; J3010; J7613